=== PATIENT | male | born 1965 | race Caucasian/White ===

== ENCOUNTER 2022-07-03 09:54 | Emergency (ER) | payer MEDICARE, MEDICAID, SELFPAY ==
--- NOTE | 2022-07-03 09:58 | XRR_ITS ---
PROCEDURE INFORMATION: Exam: XR Chest Exam date and time: 07/03/2022 10:01 AM Age: 56 years old Clinical indication: Shortness of breath; Additional info: Cp TECHNIQUE: Imaging protocol: Radiologic exam of the chest. Views: 1 view. COMPARISON: No relevant prior studies available. FINDINGS: Lungs: Unremarkable. No consolidation. Pleural spaces: Unremarkable. No pleural effusion. No pneumothorax. Heart/Mediastinum: Unremarkable. No cardiomegaly. Bones/joints: Unremarkable. XR/XR chest 1V portable [id number] IMPRESSION: No acute findings.
--- NOTE | 2022-07-03 10:00 | PC.NURSE ---
PT PLACED ON CONTINUOUS SPO2, NIBP, AND CM..
--- NOTE | 2022-07-03 10:02 | ECG_ITS ---
[facility] Test Date: 2022-07-03 Pat Name: Johnie Burns Department: Room: Gender: Male [employer]urb [employer]: : 1965 Requested By: Baltazar Barker Order Number: [id number] Reading MD: FERNANDO HONEYCUTT Measurements Intervals [place] Rate: 74 P: 55 [place]: 158 QRS: -41 QRSD: 130 T: 50 QT: 416 QTc: 462 Interpretive Statements SINUS RHYTHM LEFT AXIS DEVIATION [QRS AXIS < -30] RIGHT BUNDLE BRANCH BLOCK [120+ ms QRS DURATION, UPRIGHT V1, 40+ ms S IN I/aVL/V4/V5/V6] No previous ECG available for comparison Electronically Signed On 07-04-2022 3:07:31 CDT by FERNANDO HONEYCUTT [id number]
[2022-07-03 10:03] VITALS: BP 174/104; PULSE 75; RESP 15; O2SAT 100
--- NOTE | 2022-07-03 10:03 | CTR_ITS ---
PROCEDURE INFORMATION: Exam: CTA Chest With Contrast Exam date and time: 07/03/2022 10:58 AM Age: 56 years old Clinical indication: Pain; Other: Cp w/sob; Additional info: Sob/cp TECHNIQUE: Imaging protocol: Computed tomographic angiography of the chest with contrast. 3D rendering (Not supervised by radiologist): MIP and/or 3D reconstructed images were created by the technologist. Radiation optimization: All CT scans at this facility use at least one of these dose optimization techniques: automated exposure control; mA and/or kV adjustment per patient size (includes targeted exams where dose is matched to clinical indication); or iterative reconstruction. Contrast material: OMNI 350; Contrast volume: 100 ml; Contrast route: INTRAVENOUS (IV); REPORTING DATA: Count of CT and Cardiac NM exams in prior 12 months: This patient has received 0 known CTs and 0 known cardiac nuclear medicine studies in the 12 months prior to the current study. COMPARISON: CR (CHEST, ) 07/03/2022 10:01 AM RADIATION DOSE METRICS: Total DLP (mGy-cm): 390.81 FINDINGS: Pulmonary arteries: Excellent pulmonary arterial opacification. There is pulmonary emboli noted within the right lower lobe as well as pulmonary embolism noted within the left lower lobe there is an ascending aortic aneurysm at 50 x 45 mm. Aorta: See Pulmonary arteries finding. Lungs: There is a 3 mm middle lobe nodule adjacent to a vessel image 7/256. There is a 6 x 5 mm upper lobe right-sided nodule on image 7/239. Subtle hazy ground-glass appearance is noted to both lung bases. This is indeterminate. There is an area of consolidation possibly atelectasis but cannot rule out infection involving the right lower lobe. Pleural spaces: Trace bilateral pleural effusions. Heart: The right ventricle/left ventricle ratio is 38/52 which is less than 1. No evidence of right heart strain. Coronary arteries: Extensive coronary artery calcifications versus stents. Lymph nodes: 12 x 20 mm pretracheal lymph node. Gallbladder and bile ducts: Status post cholecystectomy. Kidneys and ureters: Exophytic lesion incompletely seen in the right kidney questionably a cyst. Bones/joints: Unremarkable. No acute fracture. Soft tissues: Unremarkable. CT/CT angio chest PE protcl [id number] IMPRESSION: 1. Small bilateral lower lobe peripheral pulmonary emboli. 2. Ascending aortic aneurysm. 3. Bilateral hazy ground-glass lung base infiltrates within area of consolidation in the right base. 4. Trace bilateral effusions. 5. Enlarged pretracheal lymph node. 6. Small pulmonary nodules. For patients at low risk (minimal or absent history of smoking and of other known risk factors), no routine follow-up is indicated. For patients at high risk (history of smoking or of other known risk factors), consider optional CT Chest at 12 months. (Reference: Carla) 7. THIS REPORT CONTAINS FINDINGS THAT MAY BE CRITICAL TO PATIENT CARE. The findings were verbally communicated by me to VIN SANTOS at 11:17 AM SENIOR INFORMATION SECURITY ENGINEER on 07/03/2022. The findings were acknowledged and understood. COMMENTS: Consistent with the [place] [employer]'s Incidental Findings Committee white paper (J Am Karl Radiol 2018): Any incidental renal lesion less than 1 cm or classified as too small to characterize, or any incidental cystic renal lesion characterized as simple-appearing, is likely benign. No follow-up imaging is recommended for these lesions per consensus recommendations based on imaging criteria. REFERENCES: Carla Gleason, et al. Guidelines for Management of Incidental Pulmonary Nodules Detected on CT Images: From the Fleischner Society 2017. Radiology. 2017;284(1):228-243.
--- NOTE | 2022-07-03 10:04 | ED_ITS ---
HPI - Chest Pain General: Chief Complaint: Chest Pain Stated Complaint: SOB, Chest Pains, Heart history Time Seen by Provider: 07/03/22 09:57 Source: patient Mode of arrival: ambulatory Limitations: no limitations History of Present Illness: 56-year-old male with history of pulmonary embolism 9 years ago he states he supposed to be on blood thinners but he has not taken over the last 2 weeks as he did not get his prescription filled states that throughout the night has been having a sharp pain in the center of his chest he states that does not radiate straight in the center he rates it a 7 out of 10 denies any worsening proving factors he has had some shortness of breath as well his pulse ox here is normal denies any cough denies any fever denies any vomiting. Associated symptoms: Reports dyspnea; Deny abdominal pain, fever(s), nausea or vomiting Review of Systems Const: Denies: fever(s), chills, body aches or change in appetite Eyes: Denies: blurry vision or eye discomfort ENMT: Denies: throat pain or dental pain Card: Reports: chest pain Resp: Reports: dyspnea GI: Denies: abdominal pain, nausea, vomiting or diarrhea : Denies: dysuria Musc: Denies: neck pain or back pain Skin/Breast: Denies: rash Neuro: Denies: headache(s) Psych: Denies: depression Ranjit/Lymph: Denies: easy bruising All/Imm: Denies: urticaria PFSH ED PFSH: Medical History (Updated 07/03/22 @ 11:30 by Baltazar Barker MD) Pulmonary embolism Social History (Updated 07/03/22 @ 10:05 by Baltazar Barker MD) Smoking and tobacco status: never smoked Physical Exam Const: COMMON NORMALS: no acute distress, patient oriented x3 and healthy appearing HENMT: COMMON NORMALS: normocephalic and atraumatic HEAD & SCALP: normocephalic and atraumatic Eye: COMMON NORMALS: Equal, round and reactive pupils present and EOMs intact bilaterally PUPIL: Yes Equal, round and reactive pupils present Neck/C-Spine: COMMON NORMALS: full ROM and supple Chest: COMMONS NORMALS: normal inspection of the chest and normal palpation of entire chest wall Resp: COMMON NORMALS: normal respiratory effort, No retractions, No use of accessory muscles and clear to auscultation bilaterally AUSCULTATION: clear to auscultation bilaterally Cardio: COMMON NORMALS: regular rate, regular rhythm and No murmurs present (Cardio) RATE: regular rate RHYTHM: regular rhythm GI: COMMON NORMALS: Normal to inspection, nondistended, normoactive bowel sounds present, Soft to palpation, non-tender and no masses PALPATION: Yes Soft to palpation Extremity: COMMON NORMALS: normal to inspection and full ROM Neuro: COMMON NORMALS: patient oriented x3, moves all extremities and no focal motor deficits Psych: COMMON NORMALS: mental status grossly normal, Normal thought process present and cooperative THOUGHT PROCESS: Normal thought process present Skin: COMMON NORMALS: no rashes or lesions noted and no wounds GENERAL SKIN EXAM: no rashes or lesions noted Course Vital Signs: Vital signs: Vital Signs Pulse Rate 75 07/03/22 10:03 Respiratory Rate 15 07/03/22 10:03 Blood Pressure 174/104 07/03/22 10:03 Pulse Oximetry 100 07/03/22 10:03 MDM - Chest Pain Medical Decision Making Patient presents here with small bilateral pulmonary emboli I spoke to him he is currently pain-free he is not hypoxic he would like to go home I will refill his Lovenox as he has been out for roughly a month we will get him a PCP here he is to follow-up he is return if worsening he understands agrees to plan. Lab Data 07/03/22 10:11 07/03/22 10:11 Radiology Impressions Chest X-Ray 07/03/22 09:58 IMPRESSION: No acute findings. Chest CTA 07/03/22 10:03 IMPRESSION: 1. Small bilateral lower lobe peripheral pulmonary emboli. 2. Ascending aortic aneurysm. 3. Bilateral hazy ground-glass lung base infiltrates within area of consolidation in the right base. 4. Trace bilateral effusions. 5. Enlarged pretracheal lymph node. 6. Small pulmonary nodules. For patients at low risk (minimal or absent history of smoking and of other known risk factors), no routine follow-up is indicated. For patients at high risk (history of smoking or of other known risk factors), consider optional CT Chest at 12 months. (Reference: Carla) 7. THIS REPORT CONTAINS FINDINGS THAT MAY BE CRITICAL TO PATIENT CARE. The findings were verbally communicated by me to TOM, KORBY at 11:17 AM DIRECTOR OF SPORTS PERFORMANCE on 07/03/2022. The findings were acknowledged and understood. COMMENTS: Consistent with the [place]'s Incidental Findings Committee white paper (J Am Karl Radiol 2018): Any incidental renal lesion less than 1 cm or classified as too small to characterize, or any incidental cystic renal lesion characterized as simple-appearing, is likely benign. No follow-up imaging is recommended for these lesions per consensus recommendations based on imaging criteria. REFERENCES: Carla Gleason, et al. Guidelines for Management of Incidental Pulmonary Nodules Detected on CT Images: From the Fleischner Society 2017. Radiology. 2017;284(1):228-243. Laboratory Results WBC 4.1 10^3/uL (4.0-10.0) 07/03/22 10:11 RBC 4.10 10^6/uL (4.1-5.3) 07/03/22 10:11 Hgb 11.0 g/dL (11.7-16.6) L 07/03/22 10:11 Hct 34.2 % (42.0-52.0) L 07/03/22 10:11 MCV 83.4 fl (80-94) 07/03/22 10:11 MCH 26.8 pg (28.0-34.0) L 07/03/22 10:11 MCHC 32.2 g/dL (30.0-36.0) 07/03/22 10:11 RDW 14.0 % (12.1-15.1) 07/03/22 10:11 Plt Count 131 10^3/cmm (130-400) 07/03/22 10:11 MPV 10.7 fL (7.4-10.4) H 07/03/22 10:11 Neut % (Auto) 69.9 % 07/03/22 10:11 Lymph % (Auto) 18.3 % 07/03/22 10:11 [place] % (Auto) 6.4 % 07/03/22 10:11 Eos % (Auto) 4.2 % 07/03/22 10:11 Baso % (Auto) 1.0 % 07/03/22 10:11 Neut # (Auto) 2.83 10^3/uL (1.8-7.7) 07/03/22 10:11 Lymph # (Auto) 0.7 10^3/uL (0.8-4.8) L 07/03/22 10:11 [place] # (Auto) 0.3 10^3/uL (0.2-0.9) 07/03/22 10:11 Eos # (Auto) 0.2 10^3/uL (0.0-0.8) 07/03/22 10:11 Baso # (Auto) 0.0 10^3/uL (0.0-0.1) 07/03/22 10:11 Nucleated RBC % (auto) 0 % 07/03/22 10:11 Nucleated RBCs # 0.0 /100WBC 07/03/22 10:11 PT 13.30 SECONDS (12.1-14.9) 07/03/22 10:11 INR 0.98 (0.8-1.2) 07/03/22 10:11 Sodium 139 mmol/L (136-145) 07/03/22 10:11 Potassium 3.9 mmol/L (3.5-5.1) 07/03/22 10:11 Chloride 104 mmol/L (98-107) 07/03/22 10:11 Carbon Dioxide 25 mmol/L (22-29) 07/03/22 10:11 Anion Gap 13.9 (5-19) 07/03/22 10:11 BUN 15 mg/dL (6-20) 07/03/22 10:11 Creatinine 1.2 mg/dL (0.7-1.2) 07/03/22 10:11 GFR Calculation 63.1 mL/min (90-130) L 07/03/22 10:11 Glucose 91 mg/dL (65-115) 07/03/22 10:11 Calculated Osmolality 288 mOsm/kg (285-295) 07/03/22 10:11 Calcium 8.8 mg/dL (8.5-10.5) 07/03/22 10:11 Total Bilirubin 0.5 mg/dL (0.15-1.2) 07/03/22 10:11 AST 12 U/L (0-40) 07/03/22 10:11 ALT 6 U/L (0-41) 07/03/22 10:11 Alkaline Phosphatase 60 U/L (40-130) 07/03/22 10:11 Troponin T Baseline 20 ng/L (0-15) H 07/03/22 10:11 NT-Pro-B Natriuret Pep 823 pg/mL (0-125) H 07/03/22 10:11 Total Protein 6.2 g/dL (6.6-8.7) L 07/03/22 10:11 Albumin 4.0 g/dL (3.5-5.2) 07/03/22 10:11 Globulin 2.2 g/dL (1.3-4.6) 07/03/22 10:11 Lipase 59 U/L (13-60) 07/03/22 10:11 EKG Data EKG 1: I personally reviewed and interpreted this EKG as follows: EKG interpretation date: 07/03/22 EKG interpretation time: 10:02 Interpretation: nsr hr [address] or t wave abnormalities qrs 130 qtc 443 Discharge Plan Discharge Patient Disposition: Home Clinical Impression: Pulmonary embolism Prescriptions: New Lovenox 80 mg/0.8 mL syringe 80 mg SUBCUT Q12H Qty: 54 0RF Discharge Orders: Discharge ED (Routine); Ordered 07/03/22 Ordered By: Baltazar Barker Discharge Diet: Advance as tolerated Discharge Activity: Resume usual activity Patient Instructions: Pulmonary Embolism (ED) Coding Level of Care Code ED Motor And Controls Tester for Avery Herron
[2022-07-03 10:25] LABS: Eosinophils # 0.2 10^3/uL (0.0-0.8); Eosinophils % 4.2 %; Hematocrit 34.2 % (42.0-52.0); Lymphocytes # 0.7 10^3/uL (0.8-4.8); Lymphocytes % 18.3 %; Mean Corpuscular HGB Conc 32.2 g/dL (30.0-36.0); Mean Corpuscular Hemoglobin 26.8 pg (28.0-34.0); Mean Corpuscular Volume 83.4 fl (80-94); Mean Platelet Volume 10.7 fL (7.4-10.4); Monocytes # 0.3 10^3/uL (0.2-0.9); Monocytes % 6.4 %; Neutrophils # 2.83 10^3/uL (1.8-7.7); Neutrophils % 69.9 %; Nucleated Red Blood Cells % 0 %; Platelet Count 131 10^3/cmm (130-400); White Blood Count 4.1 10^3/uL (4.0-10.0)
[2022-07-03] MEDS: ondansetron 2 mg/ML SDV 2 mL 4 MG IVP (10:27)
[2022-07-03] MEDS: morphine 4 mg/mL SDV 1 mL IVP (10:27)
[2022-07-03 10:38] LABS: INR 0.98 (0.8-1.2)
--- NOTE | 2022-07-03 10:43 | PC.NURSE ---
PT REPORTS TAKING 2 FULL STRENGTH ASPIRIN TAPING SUPERVISOR INFORMED DR. TOM WALLACE TO DC ASPIRIN.
[2022-07-03 10:48] LABS: Troponin(5th) Baseline 20 ng/L (0-15)
[2022-07-03 10:57] LABS: Alanine Aminotransferase 6 U/L (0-41); Alkaline Phosphatase 60 U/L (40-130); Aspartate Amino Transferase 12 U/L (0-40); Blood Urea Nitrogen 15 mg/dL (6-20); Calcium 8.8 mg/dL (8.5-10.5); Carbon Dioxide 25 mmol/L (22-29); Chloride 104 mmol/L (98-107); Globulin 2.2 g/dL (1.3-4.6); Glomerular Filtration Rate 63.1 mL/min (90-130); Glucose 91 mg/dL (65-115); Lipase 59 U/L (13-60); NT Pro B Type Natriuretic Pept 823 pg/mL (0-125); Osmolality Calculated 288 mOsm/kg (285-295); Sodium 139 mmol/L (136-145); Total Bilirubin 0.5 mg/dL (0.15-1.2); Total Protein 6.2 g/dL (6.6-8.7)
[2022-07-03] MEDS: iohexol 350 mg/mL 500 mL Btl (per mL) IV (11:02)
[2022-07-03 11:06] LABS: Anion Gap 13.9 (5-19); Potassium 3.9 mmol/L (3.5-5.1)
[2022-07-03 11:30] VITALS: BP 162/102; PULSE 69; O2SAT 96
[2022-07-03] MEDS: enoxaparin 80 mg/0.8 mL Syringe SUBCUT (11:34)
[2022-07-03 11:41] VITALS: RESP 16
--- NOTE | 2022-07-06 15:30 | DCPLANNER ---
Addendum entered by Candelaria Rosado 07/07/22 13:11: rn case management called patient due to no primary care physician - no answer at this time Original Note: TCM called patient due to no primary care physician - no answer at this time
== END 2022-07-03 11:41 | disposition home or self-care (01) ==
PROVIDERS: Emergency Provider Emergency Medicine
DX: I26.99 Other pulmonary embolism without acute cor pulmonale (principal); I71.21 Aneurysm of the ascending aorta, without rupture; Z86.711 Personal history of pulmonary embolism
CPT/HCPCS: 71045; 71275; 80053; 83690; 83880; 84484; 85025; 85610; 93005; 96372; 96374; 96375; 99285; J1650; J2270; J2405; Q9967

== ENCOUNTER 2022-07-19 08:54 | Emergency (ER) | payer MEDICARE, MEDICAID, SELFPAY ==
[2022-07-19] VITALS (24 sets, daily range): BP systolic 159–189; BP diastolic 95–124; PULSE 59–79; RESP 12–22; TEMP 36.4; O2SAT 94–99; BMI 21.6
--- NOTE | 2022-07-19 09:03 | ECG_ITS ---
[facility] Test Date: 2022-07-19 Pat Name: Johnie Burns Department: Room: Gender: Male Director Sports: : 1965 Requested By: Romulo Wright Order Number: [id number] [place] MD: Tacho Brower M.D. Measurements Intervals [place] Rate: 75 P: 116 NM: 116 QRS: -17 QRSD: 128 T: 133 QT: 412 QTc: 463 Interpretive Statements SINUS RHYTHM WITH SHORT NM INTERVAL RIGHT BUNDLE BRANCH BLOCK [120+ ms QRS DURATION, UPRIGHT V1, 40+ ms S IN I/aVL/V4/V5/V6] Compared to ECG 07/03/2022 10:02:49 Short NM interval now present Left-axis deviation no longer present Electronically Signed On 07-19-2022 11:53:07 CDT by Tacho Brower M.D. [id number]
--- NOTE | 2022-07-19 09:08 | XRR_ITS ---
PROCEDURE INFORMATION: Exam: XR Chest Exam date and time: 07/19/2022 9:42 AM Age: 56 years old Clinical indication: Pain; Angina pectoris; Prior surgery; Surgery type: Stents; Additional info: Chest pain TECHNIQUE: Imaging protocol: Radiologic exam of the chest. Views: 1 view. COMPARISON: CR (CHEST, ) 07/03/2022 10:01 AM FINDINGS: Lungs: Normal lung volumes. No interstitial or airspace opacities. Pleural spaces: No pleural effusion. No pneumothorax. Heart/Mediastinum: Normal heart size. Normal mediastinal contour. Midline trachea. Bones/joints: No acute abnormalities. Small degenerative osteophytes are seen throughout the thoracic spine. XR/XR chest 1V portable [id number] IMPRESSION: No chest radiographic evidence of acute cardiopulmonary disease.
--- NOTE | 2022-07-19 09:13 | W.ED.CHESTPA ---
HPI - Chest Pain General: Chief Complaint: Chest Pain Stated Complaint: chest pain, heart pt Time Seen by Provider: 07/19/22 09:07 Source: patient Mode of arrival: ambulatory History of Present Illness: D6-year-old male presents to the emergency room with complaint of chest discomfort radiating to his left arm. Began 30 minutes ago while he was at rest. He sat down for breakfast. He had been having a lot of heartburn symptoms lately. He has a history of coronary disease with previous stents. MD complaint: chest pain Pertinent past history: coronary artery disease Onset (ago): minute(s) Timing of current episode: episodic Onset: during rest Pain radiation: left arm Severity: mild Relieving factors: nothing Exacerbating factors: nothing Associated symptoms: Reports dyspnea; Deny abdominal pain, diaphoresis, fever(s), leg edema, nausea, palpitations, sense of impending doom, syncope or vomiting Review of Systems Const: Denies: fever(s), chills, fatigue, malaise or diaphoresis ENMT: Denies: throat pain, ear or mastoid pain, nasal discharge or nasal congestion Card: Reports: chest pain; Denies: palpitations, irregular heart rhythm, edema, swelling of feet/ankles or syncope Resp: Reports: dyspnea; Denies: productive cough or non-productive cough GI: Denies: abdominal pain, nausea or vomiting : Denies: flank pain, dysuria, urinary frequency or urinary urgency Skin/Breast: Denies: rash or pruritus [facility] ED PFSH: Medical History (Updated 07/19/22 @ 15:03 by Romulo Nolan DO) Coronary artery disease Pulmonary embolism Social History (Updated 07/03/22 @ 10:05 by Baltazar Barker MD) Smoking and tobacco status: never smoked Physical Exam Const: GENERAL APPEARANCE: cooperative and comfortable ORIENTATION/CONSCIOUSNESS: Yes awake, Yes oriented to person, Yes oriented to place and Yes oriented to time HENMT: COMMON NORMALS: normocephalic, atraumatic and hearing grossly normal bilaterally HEAD & SCALP: normocephalic and atraumatic Resp: COMMON NORMALS: normal respiratory effort, No retractions, No use of accessory muscles and clear to auscultation bilaterally AUSCULTATION: clear to auscultation bilaterally Cardio: COMMON NORMALS: regular rate, regular rhythm and No murmurs present (Cardio) RATE: regular rate RHYTHM: regular rhythm GI: COMMON NORMALS: Soft to palpation and No hepatosplenomegaly present AUSCULTATION: Yes normoactive bowel sounds PALPATION: Yes Soft to palpation, No Tenderness to palpation present (GI), No Guarding due to palpation present (GI) and Yes No hepatosplenomegaly present Extremity: COMMON NORMALS: normal to inspection, capillary refill normal, no clubbing, cyanosis or edema, no calf tenderness and no pedal edema Neuro: SENSORIUM/ORIENTATION: Yes oriented to person, Yes oriented to place and Yes oriented to time Skin: COMMON NORMALS: no rashes or lesions noted GENERAL SKIN EXAM: no rashes or lesions noted Course Vital Signs: Vital signs: Vital Signs Temperature 97.5 F L 07/19/22 09:00 Pulse Rate 67 07/19/22 14:45 Respiratory Rate 15 07/19/22 14:45 Blood Pressure 169/104 07/19/22 15:00 Pulse Oximetry 97 07/19/22 14:45 Oxygen Delivery Me thod 07/19/22 09:00 MDM - Chest Pain Medical Decision Making Cardiac enzymes and EKG are normal blood pressure is elevated that has improved. Patient is feeling better. CTA of the chest does not show progression of the PE thoracic aneurysm is stable there is an infarct in the right lower lung from the PE. Suspect that is the cause of his pain will increase his amlodipine discharge patient home follow-up with primary care if not improving or present further problems return to the emergency room. EKG does not show any acute ST changes cardiac enzymes are negative. Medical Records I reviewed the patient's medical records. Lab Data I reviewed the patient's lab results. 07/19/22 09:23 07/19/22 09:23 Radiology Impressions Chest X-Ray 07/19/22 09:08 IMPRESSION: No chest radiographic evidence of acute cardiopulmonary disease. Chest CTA 07/19/22 12:24 IMPRESSION: 1. No progression of pulmonary emboli since 07/03/2022. Linear filling defect in the RIGHT lower lobe pulmonary artery is unchanged and may be chronic. 2. No RIGHT heart strain. 3. LEFT heart enlargement. 4. Mild dilatation ascending thoracic aorta. Maximum diameter 4.4 cm. No dissection. 5. Wedge-shaped opacification RIGHT lung base may be a pulmonary infarct from the pulmonary emboli. 6. Additional subcentimeter nodules in the RIGHT lung. Recommend follow-up chest CT 4 months. 7. Atherosclerosis coronary arteries. Laboratory Results WBC 4.3 10^3/uL (4.0-10.0) 07/19/22 09: RBC 4.04 10^6/uL (4.1-5.3) L 07/19/22 09: Hgb 11.0 g/dL (11.7-16.6) L 07/19/22 09: Hct 33.4 % (42.0-52.0) L 07/19/22 09: MCV 82.7 fl (80-94) 07/19/22 09: MCH 27.2 pg (28.0-34.0) L 07/19/22: MCHC 32.9 g/dL (30.0-36.0) 07/19/22 09: RDW 14.0 % (12.1-15.1) 07/19/22 09: Plt Count 143 10^3/cmm (130-400) 07/19/22 09: MPV 10.1 fL (7.4-10.4) 07/19/22 09: Neut % (Auto) 61.1 % 07/19/22 09: Lymph % (Auto) 23.1 % 07/19/22 09: [place] % (Auto) 10.2 % 07/19/22 09: Eos % (Auto) 3.9 % 07/19/22 09: Baso % (Auto) 1.2 % 07/19/22: Neut # (Auto) 2.64 10^3/uL (1.8-7.7) 07/19/22 09: Lymph # (Auto) 1.0 10^3/uL (0.8-4.8) 07/19/22 09: [place] # (Auto) 0.4 10^3/uL (0.2-0.9) 07/19/22 09: Eos # (Auto) 0.2 10^3/uL (0.0-0.8) 07/19/22 09: Baso # (Auto) 0.1 10^3/uL (0.0-0.1) 07/19/22 09:23 Nucleated RBC % (auto) 0 % 07/19/22 09:23 Nucleated RBCs # 0.0 /100WBC 07/19/22 09:23 Sodium 140 mmol/L (136-145) 07/19/22 09:23 Potassium 3.7 mmol/L (3.5-5.1) 07/19/22 09:23 Chloride 108 mmol/L (98-107) H 07/19/22 09:23 Carbon Dioxide 22 mmol/L (22-29) 07/19/22 09:23 Anion Gap 13.7 (5-19) 07/19/22 09:23 BUN 17 mg/dL (6-20) 07/19/22 09:23 Creatinine 1.0 mg/dL (0.7-1.2) 07/19/22 09:23 GFR Calculation 77.9 mL/min (90-130) L 07/19/22 09:23 Glucose 89 mg/dL (65-115) 07/19/22 09:23 Calculated Osmolality 291 mOsm/kg (285-295) 07/19/22 09:23 Calcium 8.5 mg/dL (8.5-10.5) 07/19/22 09:23 Total Bilirubin 0.4 mg/dL (0.15-1.2) 07/19/22 09:23 AST 11 U/L (0-40) 07/19/22 09:23 ALT 9 U/L (0-41) 07/19/22 09:23 Alkaline Phosphatase 83 U/L (40-130) 07/19/22 09:23 Troponin T Baseline 18 ng/L (0-15) H 07/19/22 09:23 Troponin T 120 Minute 14.58 ng/L (0-15) 07/19/22 11:27 Delta Troponin T -3.42 ABS# (0-10) L 07/19/22 11:27 Total Protein 6.2 g/dL (6.6-8.7) L 07/19/22 09:23 Albumin 3.7 g/dL (3.5-5.2) 07/19/22 09:23 Globulin 2.5 g/dL (1.3-4.6) 07/19/22 09:23 Discharge Plan Discharge Patient Disposition: Home Clinical Impression: Atypical chest pain, Pulmonary embolism, Thoracic ascending aortic aneurysm, HTN (hypertension), benign Condition: Stable Prescriptions: New amlodipine 5 mg tablet 5 mg PO DAILY Qty: 30 0RF Discontinued amlodipine 2.5 mg tablet 2.5 mg PO DAILY No Action enoxaparin [Lovenox] 80 mg/0.8 mL syringe 80 mg SUBCUT Q12H Qty: 54 0RF furosemide 40 mg tablet 40 mg PO DAILY metoprolol succinate 50 mg tablet extended release 24 hr 50 mg PO DAILY isosorbide mononitrate 60 mg tablet extended release 24 hr 60 mg PO DAILY citalopram 20 mg tablet 20 mg PO DAILY trazodone 100 mg tablet 100 mg PO BEDTIME pantoprazole 40 mg tablet,delayed release (DR/EC) 40 mg PO DAILY levothyroxine 125 mcg tablet 125 mcg PO DAILY losartan 25 mg tablet 25 mg PO DAILY hydroxychloroquine 200 mg tablet 200 mg PO QAM buspirone 15 mg tablet 15 mg PO BID rosuvastatin 20 mg tablet 20 mg PO DAILY fenofibrate 160 mg tablet 160 mg PO DAILY Trulicity 0.75 mg/0.5 mL pen injector 0.75 mg SUBCUT Q7D Rx Instructions: on monday Lizachristinedarnell Garcia U-200 Insulin 200 unit/mL (3 mL) insulin pen See Rx Instructions .ROUTE .COMPLEX Rx Instructions: inject immediately before meals as directed (max daily dose 100 units) aspirin 325 mg Tablet 325 mg PO .ONE TIME DOSE Vitamin B-12 1,000 mcg Tablet 1,000 mcg PO DAILY Tylenol Ex Str Rapid Release 500 mg Tablet 500 - 1,000 mg PO Q6H PRN (Reason: Pain) ginkgo biloba 40 mg Tablet 40 mg PO DAILY Rx Instructions: give with meal/snack Tussin 400 mg Tablet 400 mg PO .ONE TIME DOSE melatonin 5 mg Tablet 5 mg PO BEDTIME PRN (Reason: Sleep) Discharge Orders: Discharge ED (Routine); Ordered 07/19/22 Ordered By: Romulo Nolan Discharge Diet: Usual diet Discharge Activity: Limit activity as instructed Patient Instructions: Opioid Safety, Pain Management Activity Restrictions/Additional Instructions: You are seen today for chest pain your EKG does not show any acute changes blood pressure is significantly elevated CTA of the chest and cardiac enzymes were also negative CT showed an previously known thoracic aneurysm which has not changed and previous pulmonary emboli. 1 potential source of the pain is third appears to be some infarct of the lung from the old pulmonary embolism. You should continue taking your anticoagulant. We will increase your amlodipine to 5 mg daily and follow-up with your primary care doctor within the week to reevaluate. Coding Level of Care Code ED Non Destructive Testing Supervisor for Avery Herron
[2022-07-19 09:30] LABS: Basophils # 0.1 10^3/uL (0.0-0.1); Basophils % 1.2 %; Eosinophils # 0.2 10^3/uL (0.0-0.8); Eosinophils % 3.9 %; Hematocrit 33.4 % (42.0-52.0); Lymphocytes % 23.1 %; Mean Corpuscular HGB Conc 32.9 g/dL (30.0-36.0); Mean Corpuscular Hemoglobin 27.2 pg (28.0-34.0); Mean Corpuscular Volume 82.7 fl (80-94); Mean Platelet Volume 10.1 fL (7.4-10.4); Monocytes # 0.4 10^3/uL (0.2-0.9); Monocytes % 10.2 %; Neutrophils # 2.64 10^3/uL (1.8-7.7); Neutrophils % 61.1 %; Nucleated Red Blood Cells % 0 %; Platelet Count 143 10^3/cmm (130-400); Red Blood Count 4.04 10^6/uL (4.1-5.3); White Blood Count 4.3 10^3/uL (4.0-10.0)
[2022-07-19] MEDS: metoprolol tartrate 25 mg Tablet PO (09:42)
[2022-07-19] MEDS: nitroglycerin 1 gm/inch oint Pkt 1 INCH TOPICAL (09:42)
[2022-07-19] MEDS: aspirin 81 mg Chew Tablet 324 MG PO (09:43)
--- NOTE | 2022-07-19 09:52 | PC.PHAR ---
pt states he gives himself his insulin-pt states he hasnt been taking his lyumjev states he has been having trouble getting the needles for it-pt states his mother in law dulce [phone] is a nurse and helps him with his medications-dulce states she helps when she can but is unsure what all he has been taking-dulce verified pts medications with his med bottles-the only bottles she didnt verify was amlodipine 2.5mg daily filled 06/19/22 90d/s and crestor 20mg daily filled 06/17/22 90d/s-ext med history also shows prasugrel 10mg daily filled 04/25/22 90d/s pts mother in law states she doesnt know if pt is still taking but didnt see a med bottle for it-pts mother in law states this am she gave the pt a one time dose of 325mg aspirin and tussin 400mg-
[2022-07-19 09:53] LABS: Alanine Aminotransferase 9 U/L (0-41); Albumin Level 3.7 g/dL (3.5-5.2); Alkaline Phosphatase 83 U/L (40-130); Anion Gap 13.7 (5-19); Aspartate Amino Transferase 11 U/L (0-40); Blood Urea Nitrogen 17 mg/dL (6-20); Calcium 8.5 mg/dL (8.5-10.5); Carbon Dioxide 22 mmol/L (22-29); Chloride 108 mmol/L (98-107); Globulin 2.5 g/dL (1.3-4.6); Glomerular Filtration Rate 77.9 mL/min (90-130); Glucose 89 mg/dL (65-115); Osmolality Calculated 291 mOsm/kg (285-295); Potassium 3.7 mmol/L (3.5-5.1); Sodium 140 mmol/L (136-145); Total Bilirubin 0.4 mg/dL (0.15-1.2); Total Protein 6.2 g/dL (6.6-8.7)
[2022-07-19 09:54] LABS: Troponin(5th) Baseline 18 ng/L (0-15)
--- NOTE | 2022-07-19 11:30 | ECG_ITS ---
[facility] Test Date: 2022-07-19 Pat Name: Johnie Burns Department: Room: Gender: Male Supervisor Mails: : 1965 Requested By: Romulo Wright Order Number: [id number] Bibiana MD: Tacho Brower M.D. Measurements Intervals [place] Rate: 66 P: 125 HI: 155 QRS: -19 QRSD: 128 T: 148 QT: 452 QTc: 477 Interpretive Statements SINUS RHYTHM RIGHT BUNDLE BRANCH BLOCK [120+ ms QRS DURATION, UPRIGHT V1, 40+ ms S IN I/aVL/V4/V5/V6] MODERATE T-WAVE ABNORMALITY, CONSIDER LATERAL ISCHEMIA [-0.1+ mV T-WAVE IN I/aVL/V5/V6] Compared to ECG 07/19/2022 09:03:21 T-wave abnormality now present Possible ischemia now present Short HI interval no longer present Electronically Signed On 07-19-2022 11:54:02 CDT by Tacho Brower M.D. [id number]
[2022-07-19] MEDS: ondansetron 2 mg/ML SDV 2 mL 4 MG IVP (11:46)
[2022-07-19] MEDS: morphine 4 mg/mL SDV 1 mL IVP (11:46)
[2022-07-19 11:58] LABS: Troponin 5 2HR 14.58 ng/L (0-15)
[2022-07-19 12:01] LABS: Troponin 5 2HR Delta -3.42 ABS# (0-10)
--- NOTE | 2022-07-19 12:24 | CT_ITS ---
WS: [id number] CTA THORACIC AORTA WITH AND WITHOUT CONTRAST. HISTORY: thoracic aortic aneurysm TECHNIQUE: CT imaging of the thorax is performed with and without contrast. After noncontrast imaging is performed, CT angiogram is performed during injection of Omnipaque 350; 100 mL IV.. Sagittal and coronal reconstructions, sagittal and coronal MIP imaging is submitted. All CT scans at [facility] use at least one of these dose optimization techniques: automated exposure control; mA and/or k V adjustment per patient size (includes targeted exams where dose is matched to clinical indication); or iterative reconstruction. DLP: 757.27 mGy.cm COMPARISON: 07/03/2022 Good opacification of the thoracic aorta. Maximum diameter 4.4 cm. Dilatation is not as significant a s described on 07/03/2022. No dissection or aneurysm. Pulmonary artery size is large measuring 3.6 cm. Central linear filling defect proximal RIGHT lower lobe pulmonary artery. Very similar to the prior study. Due to the configuration this may be a chronic emboli. The additional filling defects on the L EFT described on the prior study are no longer evident. 8mm noncalcified RIGHT upper lobe nodule. This is an additional nodule posterior to the fissure linda uring 4 mm. Lobulated pleural-based nearly wedge-shaped opacification of the RIGHT lung base may be f rom an infarct. Mild prominent hilar lymphoid tissue. Extensive coronary artery calcifications. Moderate enlargement of the heart. LEFT heart enlargement. No RIGHT heart strain. No pericardial or pleural effusions. Small hiatal hernia. Prior cholecystectomy. Visualized upper abdomen is negative. Increase in thoracic kyphosis. CT/CT angio chest [id number] IMPRESSION: 1. No progression of pulmonary emboli since 07/03/2022. Linear filling defect i n the RIGHT lower lobe pulmonary artery is unchanged and may be chronic. 2. No RIGHT heart strain. 3. LEFT heart enlargement. 4. Mild dilatation ascending thoracic aorta. Maximum diameter 4.4 cm. No disse ction. 5. Wedge-shaped opacification RIGHT lung base may be a pulmonary infarct from the pulmonary emboli. 6. Additional subcentimeter nodules in the RIGHT lung. Recommend follow-up [facility] CT 4 months. 7. Atherosclerosis coronary arteries.
[2022-07-19] MEDS: iohexol 350 mg/mL 500 mL Btl (per mL) IV (13:15)
--- NOTE | 2022-07-27 12:33 | DCPLANNER ---
vendor relationship manager called patient due to no primary care physician - no answer at this time
== END 2022-07-19 15:13 | disposition home or self-care (01) ==
PROVIDERS: Emergency Provider Family Medicine
DX: R07.89 Other chest pain (principal); I26.99 Other pulmonary embolism without acute cor pulmonale; I71.21 Aneurysm of the ascending aorta, without rupture; I10 Essential (primary) hypertension; Z79.85 Long-term (current) use of injectable non-insulin antidiabetic drugs; Z79.4 Long term (current) use of insulin; I25.10 Atherosclerotic heart disease of native coronary artery without angina pectoris; Z86.711 Personal history of pulmonary embolism
CPT/HCPCS: 71045; 71275; 80053; 84484; 85025; 93005; 96374; 96375; 99285; J2270; J2405; Q9967

== ENCOUNTER 2022-07-31 14:13 | Emergency (ER) | payer MEDICARE, MEDICAID, SELFPAY ==
[2022-07-31 14:14] VITALS: BP 186/107; PULSE 89; RESP 22; TEMP 36.3; O2SAT 98
--- NOTE | 2022-07-31 14:53 | ED_ITS ---
HPI - Nausea/Vomiting/Diarrhea General: Chief complaint: Nausea/Vomiting/Diarrhea Stated complaint: Abnormal Labs Time Seen by Provider: 07/31/22 14:30 History of Present Illness: Patient presents to the ER with complaints of nausea vomiting since this morning. Patient states he had a headache and been feeling bad for the last couple weeks but the nausea vomiting that started this morning. Patient does state he has uncontrolled and poorly managed diabetes and has not tested his sugar because he does not have a glucometer for the last couple weeks. MD elicited complaint: nausea and vomiting Onset (ago): hour(s) (5 hours ago) Description of vomiting: watery Associated nausea: Yes Associated abdominal pain: No Exacerbating factors: eating Relieving factors: none Associated symtoms: Reports nausea; Denies change in vision, chest pain, dysuria, headache(s) or palpitations Treatment prior to arrival: none Review of Systems General: Reports: 10 or more systems reviewed and unremarkable except in HPI and below Const: Denies: fever(s) or chills Eyes: Denies: change in vision or photophobia ENMT: Denies: throat pain or odynophagia Card: Denies: chest pain, palpitations or irregular heart rhythm Resp: Denies: dyspnea, productive cough or non-productive cough GI: Reports: nausea and vomiting; Denies: abdominal pain or diarrhea : Denies: flank pain, difficulty urinating or dysuria Musc: Denies: neck pain or back pain Skin/Breast: Denies: rash or pruritus Neuro: Denies: headache(s), numbness in extremities or weakness in extremities PFS ED PFSH: Medical History Coronary artery disease Pulmonary embolism Social History Smoking and tobacco status: never smoked Physical Exam Const: COMMON NORMALS: no acute distress, average body habitus, patient oriented x3, no limitations, healthy appearing, alert and well nourished HENMT: COMMON NORMALS: normocephalic, atraumatic, hearing grossly normal bilaterally, external ears normal, Normal external nose present and moist oral mucous membranes HEAD & SCALP: normocephalic and atraumatic NOSE: Normal external nose present EXTERNAL EAR: Yes external ears normal Neck/C-Spine: COMMON NORMALS: full ROM, no lymphadenopathy, supple, no meningeal signs, no JVD and Thyroid normal THYROID: Thyroid normal Chest: COMMONS NORMALS: normal inspection of the chest and normal palpation of entire chest wall Resp: COMMON NORMALS: normal respiratory effort, No retractions, No use of accessory muscles and clear to auscultation bilaterally AUSCULTATION: clear to auscultation bilaterally Cardio: COMMON NORMALS: no JVD, regular rate, regular rhythm, S1 normal heart sound present, S2 normal heart sound present, No gallops present (Cardio), No clicks present (Cardio) and No murmurs present (Cardio) RATE: regular rate RHYTHM: regular rhythm HEART SOUNDS: S1 normal heart sound present and S2 normal heart sound present GI: COMMON NORMALS: Normal to inspection, nondistended, normoactive bowel sounds present, Soft to palpation, non-tender, No hepatosplenomegaly present and no masses PALPATION: Yes Soft to palpation and Yes No hepatosplenomegaly present : COMMON NORMALS: Yes no CVA tenderness BLADDER/KIDNEY EXAM: Yes no CVA tenderness Back/Pelvis: COMMON NORMALS: no CVA tenderness Neuro: COMMON NORMALS: patient oriented x3 SENSORIUM/ORIENTATION: Yes alert MENINGEAL SIGNS: Yes no meningeal signs Psych: COMMON NORMALS: mental status grossly normal, Normal thought process present, cooperative, normal affect and speech normal SPEECH: Yes normal speech THOUGHT PROCESS: Normal thought process present Course Vital Signs: Vital signs: Vital Signs Temperature 97.4 F L 07/31/22 14:14 Pulse Rate 74 07/31/22 18:54 Respiratory Rate 18 07/31/22 18:54 Blood Pressure 173/115 07/31/22 18:54 Pulse Oximetry 98 07/31/22 18:54 Oxygen Delivery Me thod Room Air 07/31/22 18:54 MDM - Nausea/Vomiting/Diarrhea Medical Decision Making Patient presents to the ER with complaints of nausea and dry heaving since this morning. Patient states he been feeling bad for 2 weeks, also has poorly uncontrolled diabetes hypertension and cataracts. Patient states he does not have a glucometer because he has broke 2 weeks ago and has not been checking his sugar. Patient received 2 L normal saline and 8 mg of Zofran during his stay at the ER. Patient felt much better after receiving these. Patient will be discharged home with a prescription for Zofran and a prescription for glucometer, [employer]. Patient is to follow-up with his primary care physician within the next 1 week. Differential Diagnosis Likely gastroenteritis and dehydration; Unlikely traveler's diarrhea, food poisoning, clostridium difficile infection or drug-induced nausea and vomiting Lab Data 07/31/22 15:08 07/31/22 15:08 Laboratory Results WBC 4.0 10^3/uL (4.0-10.0) 07/31/22 15:08 RBC 4.54 10^6/uL (4.1-5.3) 07/31/22 15:08 Hgb 12.4 g/dL (11.7-16.6) 07/31/22 15:08 Hct 38.1 % (42.0-52.0) L 07/31/22 15:08 MCV 83.9 fl (80-94) 07/31/22 15:08 MCH 27.3 pg (28.0-34.0) L 07/31/22 15:08 MCHC 32.5 g/dL (30.0-36.0) 07/31/22 15:08 RDW 14.0 % (12.1-15.1) 07/31/22 15:08 Plt Count 171 10^3/cmm (130-400) 07/31/22 15:08 MPV 10.5 fL (7.4-10.4) H 07/31/22 15:08 Neut % (Auto) 56.0 % 07/31/22 15:08 Lymph % (Auto) 26.6 % 07/31/22 15:08 [place] % (Auto) 9.2 % 07/31/22 15:08 Eos % (Auto) 6.7 % 07/31/22 15:08 Baso % (Auto) 1.0 % 07/31/22 15:08 Neut # (Auto) 2.26 10^3/uL (1.8-7.7) 07/31/22 15:08 Lymph # (Auto) 1.1 10^3/uL (0.8-4.8) 07/31/22 15:08 [place] # (Auto) 0.4 10^3/uL (0.2-0.9) 07/31/22 15:08 Eos # (Auto) 0.3 10^3/uL (0.0-0.8) 07/31/22 15:08 Baso # (Auto) 0.0 10^3/uL (0.0-0.1) 07/31/22 15:08 Nucleated RBC % (auto) 0 % 07/31/22 15:08 Nucleated RBCs # 0.0 /100WBC 07/31/22 15:08 Sodium 137 mmol/L (136-145) 07/31/22 15:08 Potassium 3.9 mmol/L (3.5-5.1) 07/31/22 15:08 Chloride 102 mmol/L (98-107) 07/31/22 15:08 Carbon Dioxide 24 mmol/L (22-29) 07/31/22 15:08 Anion Gap 14.9 (5-19) 07/31/22 15:08 BUN 19 mg/dL (6-20) 07/31/22 15:08 Creatinine 1.1 mg/dL (0.7-1.2) 07/31/22 15:08 GFR Calculation 69.8 mL/min (90-130) L 07/31/22 15:08 Glucose 86 mg/dL (65-115) 07/31/22 15:08 POC Glucose 91 mg/dL (70-110) 07/31/22 15:08 Calculated Osmolality 286 mOsm/kg (285-295) 07/31/22 15:08 Calcium 9.4 mg/dL (8.5-10.5) 07/31/22 15:08 Magnesium 1.9 mg/dL (1.7-2.3) 07/31/22 15:08 Total Bilirubin 0.3 mg/dL (0.15-1.2) 07/31/22 15:08 AST 11 U/L (0-40) 07/31/22 15:08 ALT 9 U/L (0-41) 07/31/22 15:08 Alkaline Phosphatase 75 U/L (40-130) 07/31/22 15:08 Total Protein 6.7 g/dL (6.6-8.7) 07/31/22 15:08 Albumin 3.8 g/dL (3.5-5.2) 07/31/22 15:08 Globulin 2.9 g/dL (1.3-4.6) 07/31/22 15:08 Urine Color Yellow (Yellow) 07/31/22 18:47 Urine Appearance Clear (CLEAR) 07/31/22 18:47 Urine pH 5 (5-7) 07/31/22 18:47 Ur Specific [place] 1.020 (1.005-1.030) 07/31/22 18:47 Urine Protein 3+ (Negative) H 07/31/22 18:47 Urine Glucose (UA) Norm (Normal) 07/31/22 18:47 Urine Ketones Negative (Negative) 07/31/22 18:47 Urine Blood Neg (Negative) 07/31/22 18:47 Urine Nitrate Negative (Negative) 07/31/22 18:47 Urine Bilirubin Neg (Negative) 07/31/22 18:47 Urine Urobilinogen Norm mg/dL (Negative) 07/31/22 18:47 Ur Leukocyte Esterase Negative (Negative) 07/31/22 18:47 Urine RBC 0-4 /hpf (0-2) H 07/31/22 18:47 Urine WBC 0-4 /hpf (0-5) H 07/31/22 18:47 Ur Squamous Epith Cells 0-4 /hpf (0-5) H 07/31/22 18:47 Amorphous Sediment Not Reportable 07/31/22 18:47 Urine Bacteria 1+ /hpf (NONE) H 07/31/22 18:47 Serum Ketones Negative (Negative) 07/31/22 15:08 Discharge Plan Discharge Patient Disposition: Home Clinical Impression: Nausea & vomiting, Asymptomatic proteinuria Condition: Stable Prescriptions: New ondansetron HCl 4 mg tablet 4 mg PO Q8H PRN (Reason: nausea and vomiting) Qty: 14 0RF No Action enoxaparin [Lovenox] 80 mg/0.8 mL syringe 80 mg SUBCUT Q12H Qty: 54 0RF furosemide 40 mg tablet 40 mg PO DAILY metoprolol succinate 50 mg tablet extended release 24 hr 50 mg PO DAILY isosorbide mononitrate 60 mg tablet extended release 24 hr 60 mg PO DAILY citalopram 20 mg tablet 20 mg PO DAILY trazodone 100 mg tablet 100 mg PO BEDTIME pantoprazole 40 mg tablet,delayed release (DR/EC) 40 mg PO DAILY levothyroxine 125 mcg tablet 125 mcg PO DAILY losartan 25 mg tablet 25 mg PO DAILY hydroxychloroquine 200 mg tablet 200 mg PO QAM buspirone 15 mg tablet 15 mg PO BID rosuvastatin 20 mg tablet 20 mg PO DAILY fenofibrate 160 mg tablet 160 mg PO DAILY Trulicity 0.75 mg/0.5 mL pen injector 0.75 mg SUBCUT Q7D Rx Instructions: on monday Ntahen Garcia U-200 Insulin 200 unit/mL (3 mL) insulin pen See Rx Instructions .ROUTE .COMPLEX Rx Instructions: inject immediately before meals as directed (max daily dose 100 units) aspirin 325 mg Tablet 325 mg PO .ONE TIME DOSE Vitamin B-12 1,000 mcg Tablet 1,000 mcg PO DAILY Tylenol Ex Str Rapid Release 500 mg Tablet 500 - 1,000 mg PO Q6H PRN (Reason: Pain) ginkgo biloba 40 mg Tablet 40 mg PO DAILY Rx Instructions: give with meal/snack Tussin 400 mg Tablet 400 mg PO .ONE TIME DOSE melatonin 5 mg Tablet 5 mg PO BEDTIME PRN (Reason: Sleep) amlodipine 5 mg tablet 5 mg PO DAILY Qty: 30 0RF Discharge Orders: Discharge ED (Routine); Ordered 07/31/22 Ordered By: Aldo Christianson Patient Instructions: Acute Nausea and Vomiting (ED) Coding Level of Care Code ED Light Bulb Assembler for Avery Herron
[2022-07-31 15:14] LABS: Glucose Point of Care 91 mg/dL (70-110)
[2022-07-31 15:15] VITALS: BP 176/110; O2SAT 96
[2022-07-31] MEDS: sodium chloride 0.9% 1,000 ML 999 ML IV ×2 (15:19→17:53)
[2022-07-31] MEDS: ondansetron 2 mg/ML SDV 2 mL 8 MG IVP (15:19)
[2022-07-31 15:45] LABS: Eosinophils # 0.3 10^3/uL (0.0-0.8); Eosinophils % 6.7 %; Hematocrit 38.1 % (42.0-52.0); Hemoglobin 12.4 g/dL (11.7-16.6); Lymphocytes # 1.1 10^3/uL (0.8-4.8); Lymphocytes % 26.6 %; Mean Corpuscular HGB Conc 32.5 g/dL (30.0-36.0); Mean Corpuscular Hemoglobin 27.3 pg (28.0-34.0); Mean Corpuscular Volume 83.9 fl (80-94); Mean Platelet Volume 10.5 fL (7.4-10.4); Monocytes # 0.4 10^3/uL (0.2-0.9); Monocytes % 9.2 %; Neutrophils # 2.26 10^3/uL (1.8-7.7); Nucleated Red Blood Cells % 0 %; Platelet Count 171 10^3/cmm (130-400); Red Blood Count 4.54 10^6/uL (4.1-5.3)
[2022-07-31 15:53] LABS: Alanine Aminotransferase 9 U/L (0-41); Albumin Level 3.8 g/dL (3.5-5.2); Alkaline Phosphatase 75 U/L (40-130); Anion Gap 14.9 (5-19); Aspartate Amino Transferase 11 U/L (0-40); Blood Urea Nitrogen 19 mg/dL (6-20); Calcium 9.4 mg/dL (8.5-10.5); Carbon Dioxide 24 mmol/L (22-29); Chloride 102 mmol/L (98-107); Globulin 2.9 g/dL (1.3-4.6); Glomerular Filtration Rate 69.8 mL/min (90-130); Glucose 86 mg/dL (65-115); Magnesium 1.9 mg/dL (1.7-2.3); Osmolality Calculated 286 mOsm/kg (285-295); Potassium 3.9 mmol/L (3.5-5.1); Sodium 137 mmol/L (136-145); Total Bilirubin 0.3 mg/dL (0.15-1.2); Total Protein 6.7 g/dL (6.6-8.7)
[2022-07-31 15:54] LABS: Ketone (Acetest) Serum Negative (Negative)
[2022-07-31 18:19] VITALS: BP 170/107; PULSE 79; RESP 14; O2SAT 98
[2022-07-31 18:54] VITALS: BP 173/115; PULSE 74; RESP 18; O2SAT 98
[2022-07-31 19:13] LABS: Bilirubin Urine Neg (Negative); Blood Urine Neg (Negative); Glucose Urine UA Norm (Normal); Ketones Urine Negative (Negative); Leukocyte Esterase Urine Negative (Negative); Nitrate Urine Negative (Negative); Protein Urine 3+ (Negative); Urine Appearance Clear (CLEAR); Urine Color Yellow (Yellow); Urobilinogen Urine Norm (Negative); pH Urine 5 (5-7)
[2022-07-31 19:14] LABS: Add Urine Microscopic? YES
[2022-07-31 19:15] LABS: Bacteria Urine 1+ /hpf; RBC Urine 0-4 /hpf (0-2); Squamous Epithelial Cell Urine 0-4 /hpf (0-5); WBC Urine 0-4 /hpf (0-5)
[2022-07-31 19:45] VITALS: PULSE 77; RESP 17; O2SAT 94
--- NOTE | 2022-08-04 13:53 | DCPLANNER ---
manager auto called patient due to no primary care physician - no answer at this time
== END 2022-07-31 19:51 | disposition home or self-care (01) ==
PROVIDERS: Emergency Provider Emergency Medicine
DX: R11.2 Nausea with vomiting, unspecified (principal); R80.9 Proteinuria, unspecified; E11.36 Type 2 diabetes mellitus with diabetic cataract; I10 Essential (primary) hypertension
CPT/HCPCS: 36416; 80053; 81001; 82009; 82962; 83735; 85025; 96361; 96374; 99284; J2405; J7030